=== PATIENT | female | born 1955 | race Hispanic/Latino ===

== ENCOUNTER → 2024-04-26 | Outpatient (CLI) | payer OTHER ==
--- NOTE | 2024-05-04 09:33 | HMCSR ---
APPROVED REPORT EXAM: Two-dimensional and M-mode echocardiogram with Doppler and color Doppler. INDICATION ICD: R94.31 Abnormal electrocardiogram 2D Dimensions RVDd3.4 cmLVEF(%)59.8 (>50%)LVED Vol(simp.)66.0 mL IVSd0.8 (0.7-1.1cm)FS(%)31 %LVES Vol(simp.)28.0 mL LVDd3.9 (3.8-5.6cm)Ao Root(2D)3.4 (2.0-3.7cm)LVEF(%, simp.)57 % PWd0.8 (0.7-1.1cm)LVOT diam1.9 (1.8-2.4cm)LA ESV INDEX (BP)23.10 mL/m2 LVDs2.7 (2.5-4.0cm)IVC diam1.8 cm Aortic Valve AoV Vmax1.2 m/Nyla Peak GR5.6 mmHgLVOT Vmax1.1 m/s AoV VTI0.3 mAo Mean GR2.9 mmHgLVOT VTI0.22 m VENECIA (VMAX)2.5 cm2AVA (VTI) 2.5 cm2 Mitral Valve MV E Vmax49.8 cm/sDECEL Nyus035 ms MV A Vmax50.8 cm/sP 1/2 T86 ms E/A ratio1.0MVA (PHT)2.5 cm2 MR Max PG63 mmHg TDI E/E' Medial9.0E/E' Lateral5.6 Pulmonary Valve PV Vmax0.7 m/sPV VTI0.17 mPV Mean GR1 mmHg PV Peak GR2.2 mmHg Tricuspid Valve TR Vmax2.4 m/sRAP (EST) 8 xvPyEUZI23.7 mmHg TR Peak GR22.7 mmHg Left Ventricle The left ventricle structure and function is normal. There is normal left ventricular wall thickness. LVEF is 55-60%. Left ventricular filling pattern is normal for age. Right Ventricle The right ventricle is normal size. The right ventricular systolic function is normal. Atria The left atrium size is normal. The right atrium size is normal. Aortic Valve Aortic valve is trileaflet. Aortic valve leaflets are sclerotic but open well. Trace aortic regurgita tion. There is no aortic valvular stenosis. Mitral Valve Mitral valve leaflets are mildly sclerotic but open well. Mitral regurgitation is trace to mild. Ther e is no mitral valve stenosis. Tricuspid Valve The tricuspid valve leaflets appear normal. There is trace to mild tricuspid regurgitation. Right augustine tricular systolic pressure is estimated at 30-40 mmHg. Pulmonic Valve Pulmonic valve is not well visualized. Great Vessels The aortic root is normal in size. The IVC is normal in size and collapses >50% with inspiration. Pericardium No pericardial effusion. Conclusion The left ventricle structure and function is normal. LVEF is 55-60%. Left ventricular filling pattern is normal for age. The right ventricle is normal size. The right ventricular systolic function is normal. The left atrium size is normal. The right atrium size is normal. There is trace to mild tricuspid regurgitation. Right ventricular systolic pressure is estimated at 30-40 mmHg. No pericardial effusion.
== END | disposition home or self-care (01) ==
LOC: SHCH 10:41
PROVIDERS: ATTEND Student in an Organized Health Care Education/Training Program
DX: R94.31 Abnormal electrocardiogram [ECG] [EKG] (principal)
CPT/HCPCS: 93306